=== PATIENT | female | born 1950 | race Caucasian/White ===

== ENCOUNTER 2018-08-23 21:39 | Emergency (ER) | payer OTHER ==
[~2018-08-23] VITALS: Ht 170.2 cm; Wt 122.5 kg
[~2018-08-23 21:39] MED LIST: ACCUPRIL; ALBU90OI61 INH; AMLO5; Acyclovir800 MG PO; HCTZ; HYDACE5 PO; LEVO750 PO; LEVSOD25; LORA1 PO; LOSARTAN POTASS50 MG PO; MELO7.5 PO; METO100ER; METO100ER PO; Metoprolol Tar100 MG PO; OLME20 PO; Percocet 5-3251 EACH PO; QUIN10 PO; RXHYDACE PO
[2018-08-23 22:26] LABS: BASOPHILS ABSOLUTE AUTO 0.06 K/mm3 (0.00-0.23); BASOPHILS PERCENT AUTO 1 % (0-2); EOSINOPHILS ABSOLUTE AUTO 0.38 K/mm3 (0.00-0.68); EOSINOPHILS PERCENT AUTO 3 % (0-6); Hematocrit 39.7 % (33.0-51.0); Hemoglobin 12.3 g/dL (11.5-16.0); IMMATURE GRAN ABSOLUTE AUTO 0.08 K/mm3 (0.00-0.10); IMMATURE GRAN PERCENT AUTO 1 % (0-1); LYMPHOCYTES ABSOLUTE AUTO 2.79 K/mm3 (0.84-5.20); LYMPHOCYTES PERCENT AUTO 22 % (21-46); MONOCYTES ABSOLUTE AUTO 1.35 K/mm3 (0.16-1.47); MONOCYTES PERCENT AUTO 10 % (4-13); Mean Corpuscular HGB 28.3 pg (26.0-34.0); Mean Corpuscular Volume 92 fL (80-100); Mean Platelet Volume 10.5 fL (9.1-12.4); NEUTROPHILS ABSOLUTE AUTO 8.26 K/mm3 (1.96-9.15); NEUTROPHILS PERCENT AUTO 64 % (41-73); Platelet Count 347 K/mm3 (150-400); RDW Coefficient Variation 14.5 % (11.7-14.2); Red Blood Cell Count 4.34 M/mm3 (3.80-5.20); White Blood Cell Count 12.92 K/mm3 (4.00-11.30)
[2018-08-23] MEDS ORDERED: METO100 PO (23:27)
[2018-08-23] MEDS ORDERED: FURO40 PO (23:28)
[2018-08-23] MEDS ORDERED: POTCHL10ER PO (23:28)
[2018-08-23] MEDS ORDERED: AMLO10 PO (23:29)
[2018-08-23] MEDS ORDERED: LEVSOD50 PO (23:29)
[2018-08-23 23:47] LABS: Troponin I <0.015 ng/mL (0.000-0.040)
[2018-08-23 23:52] LABS: Alanine Aminotransfer (ALT/SGP 21 U/L (12-78); Albumin, Blood 3.5 g/dL (3.4-5.0); Albumin/Globulin Ratio 0.9 (0.8-1.8); Alk Phos 102 U/L (50-136); Anion Gap 3 mmol/L (6-16); Aspartate Aminotrans (AST/SGOT 15 U/L (12-37); Bilirubin, Total 0.3 mg/dL (0.1-1.0); Blood Urea Nitrogen 18 mg/dL (8-24); Bun/Creatinine Ratio 20.8 (12.0-20.0); CO2, Blood 31 mmol/L (21-32); Calcium, Blood 8.9 mg/dL (8.5-10.1); Chloride, Blood 107 mmol/L (98-108); Creatinine, Blood 0.87 mg/dL (0.40-1.00); Globulin, Blood 3.7 g/dL (2.2-4.0); Glomerular Filtration Rate >60 (60-); Glucose, Blood 81 mg/dL (70-99); Potassium, Blood 3.8 mmol/L (3.5-5.5); Sodium, Blood 141 mmol/L (136-145); Total Protein, Blood 7.2 g/dL (6.4-8.2)
== END 2018-08-24 00:40 | disposition home or self-care (01) ==
LOC: ER 21:39
PROVIDERS: Physician Assistant
DX: R60.0 Localized edema (principal); E03.9 Hypothyroidism, unspecified; I10 Essential (primary) hypertension; M79.7 Fibromyalgia; Z88.1 Allergy status to other antibiotic agents; Z79.899 Other long term (current) drug therapy
CPT/HCPCS: 36415; 71046; 80053; 83880; 84484; 85025; 93005; 93010; 96374; 99284-25

== ENCOUNTER 2019-04-13 12:23 | Emergency (ER) | payer OTHER ==
[~2019-04-13] VITALS: Ht 167.6 cm; Wt 95.2 kg
[~2019-04-13 12:23] MED LIST changes: +AMLO10 PO; +FURO40 PO; +LEVSOD50 PO; +METO100 PO; +POTCHL10ER PO
[2019-04-13 13:28] LABS: BASOPHILS ABSOLUTE AUTO 0.06 K/mm3 (0.00-0.23); BASOPHILS PERCENT AUTO 1 % (0-2); EOSINOPHILS PERCENT AUTO 4 % (0-6); Hematocrit 40.3 % (33.0-51.0); Hemoglobin 12.2 g/dL (11.5-16.0); IMMATURE GRAN ABSOLUTE AUTO 0.05 K/mm3 (0.00-0.10); IMMATURE GRAN PERCENT AUTO 1 % (0-1); LYMPHOCYTES ABSOLUTE AUTO 1.92 K/mm3 (0.84-5.20); LYMPHOCYTES PERCENT AUTO 23 % (21-46); MONOCYTES ABSOLUTE AUTO 0.51 K/mm3 (0.16-1.47); MONOCYTES PERCENT AUTO 6 % (4-13); Mean Corpuscular HGB 27.5 pg (26.0-34.0); Mean Corpuscular HGB Conc 30.3 g/dL (31.5-36.5); Mean Corpuscular Volume 91 fL (80-100); Mean Platelet Volume 10.7 fL (9.1-12.4); NEUTROPHILS ABSOLUTE AUTO 5.68 K/mm3 (1.96-9.15); NEUTROPHILS PERCENT AUTO 67 % (41-73); Platelet Count 305 K/mm3 (150-400); RDW Coefficient Variation 14.6 % (11.7-14.2); RDW Standard Deviation 48.7 fL (35.1-46.3); Red Blood Cell Count 4.43 M/mm3 (3.80-5.20); White Blood Cell Count 8.52 K/mm3 (4.00-11.30)
[2019-04-13 13:51] LABS: Alanine Aminotransfer (ALT/SGP 19 U/L (12-78); Albumin, Blood 3.4 g/dL (3.4-5.0); Alk Phos 89 U/L (50-136); Anion Gap 6 mmol/L (6-16); Aspartate Aminotrans (AST/SGOT 18 U/L (12-37); Bilirubin, Total 0.5 mg/dL (0.1-1.0); Blood Urea Nitrogen 11 mg/dL (8-24); Bun/Creatinine Ratio 15.9 (12.0-20.0); CO2, Blood 27 mmol/L (21-32); Calcium, Blood 8.7 mg/dL (8.5-10.1); Chloride, Blood 108 mmol/L (98-108); Creatinine, Blood 0.69 mg/dL (0.40-1.00); Globulin, Blood 3.5 g/dL (2.2-4.0); Glomerular Filtration Rate >60 (60-); Glucose, Blood 142 mg/dL (70-99); Potassium, Blood 3.6 mmol/L (3.5-5.5); Sodium, Blood 141 mmol/L (136-145); Total Protein, Blood 6.9 g/dL (6.4-8.2); Troponin I <0.015 ng/mL (0.000-0.040)
== END 2019-04-13 16:28 | disposition home or self-care (01) ==
LOC: ER 12:23
PROVIDERS: Physician Assistant
DX: R60.0 Localized edema (principal); M79.661 Pain in right lower leg; M79.662 Pain in left lower leg; I10 Essential (primary) hypertension; E03.9 Hypothyroidism, unspecified; Z88.1 Allergy status to other antibiotic agents; Z79.899 Other long term (current) drug therapy
CPT/HCPCS: 36415; 71046; 80053; 83880; 84484; 85025; 93005; 93010; 93971; 96374; 99284-25; J1940

== ENCOUNTER 2024-07-25 09:28 | Inpatient (IN) | payer OTHER ==
[~2024-07-25] VITALS: Ht 170.2 cm; Wt 114.1 kg
[2024-07-25] MEDS ORDERED: DiphenhydrAMINE HCl 50 MG/ML 1ML Vial IV ONE ×2 (10:10→14:55)
[2024-07-25] MEDS ORDERED: Ipratropium/Albuterol SulF 2.5-0.5MG/3 ML Amp INH ONE ×2 (10:10→15:05)
[2024-07-25] MEDS ORDERED: NS 1,000 ML IV SCH ×3 (10:10→17:55)
[2024-07-25] MEDS ORDERED: Prochlorperazine Edisylate 10 mg Vial IV ONE ×2 (10:10→14:55)
[2024-07-25 11:03] LABS: BASOPHILS ABSOLUTE AUTO 0.07 K/mm3 (0.00-0.23); BASOPHILS PERCENT AUTO 1 % (0-2); EOSINOPHILS ABSOLUTE AUTO 0.05 K/mm3 (0.00-0.68); EOSINOPHILS PERCENT AUTO 0 % (0-6); Hematocrit 44.4 % (33.0-51.0); Hemoglobin 14.5 g/dL (11.5-16.0); IMMATURE GRAN ABSOLUTE AUTO 0.06 K/mm3 (0.00-0.10); IMMATURE GRAN PERCENT AUTO 0 % (0-1); LYMPHOCYTES ABSOLUTE AUTO 1.38 K/mm3 (0.84-5.20); LYMPHOCYTES PERCENT AUTO 10 % (21-46); MONOCYTES PERCENT AUTO 12 % (4-13); Mean Corpuscular HGB 27.9 pg (26.0-34.0); Mean Corpuscular HGB Conc 32.7 g/dL (31.5-36.5); Mean Corpuscular Volume 86 fL (80-100); Mean Platelet Volume 10.5 fL (9.1-12.4); NEUTROPHILS ABSOLUTE AUTO 11.27 K/mm3 (1.96-9.15); NEUTROPHILS PERCENT AUTO 78 % (41-73); Platelet Count 342 K/mm3 (150-400); RDW Standard Deviation 47.2 fL (35.1-46.3); Red Blood Cell Count 5.19 M/mm3 (3.80-5.20); White Blood Cell Count 14.53 K/mm3 (4.00-11.30)
[2024-07-25 11:27] LABS: Albumin, Blood 3.5 g/dL (3.4-5.0); Albumin/Globulin Ratio 0.8 (0.8-1.8); Bilirubin, Total 1.5 mg/dL (0.1-1.0); Bun/Creatinine Ratio 15.4 (12.0-20.0); Calcium, Blood 8.8 mg/dL (8.5-10.1); Creatinine, Blood 0.65 mg/dL (0.40-1.00); Globulin, Blood 4.3 g/dL (2.2-4.0); Potassium, Blood 4.1 mmol/L (3.5-5.5); Total Protein, Blood 7.8 g/dL (6.4-8.2)
[2024-07-25] MEDS ORDERED: Albuterol 2.5 MG/3 ML VIAL INH ONE ×2 (15:25→15:35)
[2024-07-25] MEDS ORDERED: Ondansetron HCl 2 MG / ML 2ML Vial IV ONE (15:45)
[2024-07-25] MEDS ORDERED: CefTRIAXone Sodium 1,000 MG in NS 100 ML IV ONE (16:10)
[2024-07-25] MEDS ORDERED: OxyCODONE 5 mg/Acetamin 325 mg TABLET PO PRN (17:50)
[2024-07-25] MEDS ORDERED: Acetaminophen 500 MG Tab PO PRN (17:50)
[2024-07-25] MEDS ORDERED: Ondansetron HCl 2 MG / ML 2ML Vial IV PRN (17:55)
[2024-07-25] MEDS ORDERED: Ketorolac Tromethamine 15mg Vial IV ONE (18:00)
[2024-07-25] MEDS ORDERED: Doxycycline Hyclate 100 MG TAB PO SCH (18:00)
[2024-07-25] MEDS ORDERED: Ketorolac Tromethamine 15mg Vial IV PRN (18:15)
[2024-07-25 19:46] VITALS: BP 150/84
[2024-07-25 20:06] LABS: Influenza A, PCR NEGATIVE (NEGATIVE); Influenza B, PCR NEGATIVE (NEGATIVE); Resp Syncytial Virus, PCR NEGATIVE (NEGATIVE); SARS-Cov-2 (COVID-19) PCR, MMC NEGATIVE (NEGATIVE)
[2024-07-25] MEDS ORDERED: HYDACE10B PO ×2 (20:17→20:18)
[2024-07-25] MEDS ORDERED: Albuterol 2.5 MG/3 ML VIAL INH PRN (20:45)
[2024-07-25] MEDS ORDERED: Metoprolol Tartrate 50 MG Tab PO SCH (21:00)
[2024-07-25] MEDS ORDERED: Lactobacil 2-S.Thermo-Bifido 1 1 Cap PO SCH (21:00)
[2024-07-25] MEDS ORDERED: HYDROcodone 10-APAP 325 TAB PO PRN (21:30)
[2024-07-26 04:31] VITALS: BP 111/75
--- NOTE | 2024-07-26 05:08 | NUR ---
SHIFT SUMMARY PT ADMITTED DURING THE EVENING FOR PNEUMONIA. PT WITH OCCASSIONAL COUGH. PT ON ROOM AIR WITH SATS WNL. UP TO BATHROOM INDEPENDENTLY/SBA. MEDICATED FOR HEADACHE PER EMAR. IVF INFUSING PER ORDER. BED IN LOWEST POSITION, CALL LIGHT WITHIN REACH, SIDERAILS UP X2.
[2024-07-26 05:55] LABS: BASOPHILS ABSOLUTE AUTO 0.06 K/mm3 (0.00-0.23); BASOPHILS PERCENT AUTO 1 % (0-2); EOSINOPHILS PERCENT AUTO 3 % (0-6); Hematocrit 38.6 % (33.0-51.0); Hemoglobin 12.4 g/dL (11.5-16.0); IMMATURE GRAN ABSOLUTE AUTO 0.06 K/mm3 (0.00-0.10); IMMATURE GRAN PERCENT AUTO 1 % (0-1); LYMPHOCYTES PERCENT AUTO 15 % (21-46); MONOCYTES ABSOLUTE AUTO 1.44 K/mm3 (0.16-1.47); MONOCYTES PERCENT AUTO 14 % (4-13); Mean Corpuscular HGB 27.8 pg (26.0-34.0); Mean Corpuscular HGB Conc 32.1 g/dL (31.5-36.5); Mean Corpuscular Volume 87 fL (80-100); Mean Platelet Volume 10.5 fL (9.1-12.4); NEUTROPHILS ABSOLUTE AUTO 7.02 K/mm3 (1.96-9.15); NEUTROPHILS PERCENT AUTO 68 % (41-73); Platelet Count 289 K/mm3 (150-400); RDW Coefficient Variation 15.5 % (11.7-14.2); RDW Standard Deviation 49.7 fL (35.1-46.3); Red Blood Cell Count 4.46 M/mm3 (3.80-5.20); White Blood Cell Count 10.38 K/mm3 (4.00-11.30)
[2024-07-26] MEDS ORDERED: Levothyroxine Sodium 0.05 MG Tab PO SCH (06:00)
[2024-07-26 06:13] LABS: Albumin, Blood 2.9 g/dL (3.4-5.0); Albumin/Globulin Ratio 0.8 (0.8-1.8); Bun/Creatinine Ratio 21.9 (12.0-20.0); Calcium, Blood 8.4 mg/dL (8.5-10.1); Creatinine, Blood 0.82 mg/dL (0.40-1.00); Globulin, Blood 3.8 g/dL (2.2-4.0); Potassium, Blood 3.8 mmol/L (3.5-5.5); Total Protein, Blood 6.7 g/dL (6.4-8.2)
[2024-07-26 07:29] VITALS: BP 113/63
[2024-07-26] MEDS ORDERED: AmLODIPine Besylate 5 MG Tab PO SCH (09:00)
[2024-07-26] MEDS ORDERED: Enoxaparin 40 MG/0.4 ML SYR SC SCH (09:00)
--- NOTE | 2024-07-26 15:19 | NUR ---
THIS RN NOTIFIED OF PT'S D-DIMER LAB RESULT. PROVIDER TO PUT NEW ORDER IN EMAR.
[2024-07-26 16:31] VITALS: BP 157/88
[2024-07-26] MEDS ORDERED: CefTRIAXone Sodium 1,000 MG in NS 100 ML IV SCH (17:00)
--- NOTE | 2024-07-26 18:03 | NUR ---
SHIFT SUMMARY PT A&OX4, VSS, ON RA, TOLERATING PO, VOIDING, AND H/A PAIN MEDICATED PER EMAR. NS D/C PER ORDER. D-DIMER LAB COMPLETE AND PROVIDER NOTIFIED, SEE PREVIOUS NOTE. PROVIDER ALSO NOTIFIED OF REFUSAL OF LOVENOX. PT EDUCATED AND AGREEABLE TO TOMORROW DOSE. PT PLAN TO HAVE PE STUDY. NO OTHER ACUTE CHANGES. CALL LIGHT WITHIN REACH AND PT ABLE TO MAKE NEEDS KNOWN.
[2024-07-26 19:28] VITALS: BP 149/82
[2024-07-26] MEDS ORDERED: Metoprolol Tartrate 50 MG Tab PO SCH (21:00)
[2024-07-26] MEDS ORDERED: MetroNIDAZOLE 500MG/NS 100 ml 100 ML IV SCH (23:00)
[2024-07-26] MEDS ORDERED: NS 250 ML IV PRN (23:10)
[2024-07-26 23:56] VITALS: BP 131/72
[2024-07-26 23:57] VITALS: BP 131/72
[2024-07-27 03:59] VITALS: BP 138/78
--- NOTE | 2024-07-27 04:54 | NUR ---
SHIFT SUMMARY PT HAD CT FOR PE STUDY DURING THE EVENING- CT SHOWED FREE AIR IN ABDOMEN. CT ABD/PELVIS DONE WITH SAME RESULTS. PT MADE NPO AND IV FLAGYL GIVEN PER NEW ORDER. PT STATED SHARP RECTAL AND LOWER ABD PAIN AFTER 1ST CT, BUT SYMPTOMS RESOLVED. PT WITH SOME NAUSEA, BUT STATES SHE FEELS THAT WAY SOMETIMES AT HOME AFTER [place]. PT C/O CONTINUED HEADACHE. PT MEDICATED FOR PAIN AND NAUSEA PER EMAR. ICE PACK PROVIDED WELL FOR HEADACHE. PT SLEPT INTERMITTENTLY DURING THE NIGHT. BED IN LOWEST POSITION, CALL LIGHT WITHIN REACH, SIDERAILS UP X2.
[2024-07-27 07:11] VITALS: BP 132/77
[2024-07-27] MEDS ORDERED: Morphine Sulfate 4 MG/1 ML Injection IV PRN (10:10)
[2024-07-27 15:59] VITALS: BP 154/68
--- NOTE | 2024-07-27 17:22 | NUR ---
SHIFT SUMMARY SURGICAL CONSULT COMPLETED, NO INTERVENTION AT THIS TIME. PT ON CLEAR LIQUID DIET AND PLAN TO CONT IV ABX. PT CONT TO C/O HEADACHE THAT WAS MEDICATED PER EMAR. PT WORKED W/ PHYSICAL THERAPY, SEE THERAPY NOTE. NO OTHER ACUTE CHANGES. CALL LIGHT WITHIN REACH AND PT ABLE TO MAKE NEEDS KNOWN.
[2024-07-27 19:53] VITALS: BP 151/93
[2024-07-28 05:25] VITALS: BP 146/72
[2024-07-28 07:34] LABS: BASOPHILS ABSOLUTE AUTO 0.04 K/mm3 (0.00-0.23); BASOPHILS PERCENT AUTO 0 % (0-2); EOSINOPHILS ABSOLUTE AUTO 0.27 K/mm3 (0.00-0.68); EOSINOPHILS PERCENT AUTO 2 % (0-6); Hematocrit 37.8 % (33.0-51.0); IMMATURE GRAN ABSOLUTE AUTO 0.07 K/mm3 (0.00-0.10); IMMATURE GRAN PERCENT AUTO 1 % (0-1); LYMPHOCYTES ABSOLUTE AUTO 1.28 K/mm3 (0.84-5.20); LYMPHOCYTES PERCENT AUTO 11 % (21-46); MONOCYTES ABSOLUTE AUTO 0.93 K/mm3 (0.16-1.47); MONOCYTES PERCENT AUTO 8 % (4-13); Mean Corpuscular HGB Conc 31.7 g/dL (31.5-36.5); Mean Corpuscular Volume 88 fL (80-100); Mean Platelet Volume 10.6 fL (9.1-12.4); NEUTROPHILS ABSOLUTE AUTO 9.26 K/mm3 (1.96-9.15); NEUTROPHILS PERCENT AUTO 78 % (41-73); Platelet Count 317 K/mm3 (150-400); RDW Coefficient Variation 15.4 % (11.7-14.2); RDW Standard Deviation 50.1 fL (35.1-46.3); Red Blood Cell Count 4.29 M/mm3 (3.80-5.20); White Blood Cell Count 11.85 K/mm3 (4.00-11.30)
[2024-07-28 07:54] LABS: Bun/Creatinine Ratio 13.2 (12.0-20.0); Calcium, Blood 8.5 mg/dL (8.5-10.1); Creatinine, Blood 0.61 mg/dL (0.40-1.00); Potassium, Blood 4.4 mmol/L (3.5-5.5)
[2024-07-28 08:23] VITALS: BP 182/94
[2024-07-28 15:22] VITALS: BP 165/91
[2024-07-28] MEDS ORDERED: HydrALAZINE HCl 20 MG / ML 1ML Vial IV PRN (19:15)
[2024-07-28] MEDS ORDERED: Losartan Potassium 50 MG Tab PO SCH (20:00)
[2024-07-28 20:02] VITALS: BP 188/96
[2024-07-29 05:05] VITALS: BP 126/76
[2024-07-29 07:28] VITALS: BP 138/74
[2024-07-29 10:22] LABS: BASOPHILS ABSOLUTE AUTO 0.06 K/mm3 (0.00-0.23); BASOPHILS PERCENT AUTO 1 % (0-2); EOSINOPHILS ABSOLUTE AUTO 0.43 K/mm3 (0.00-0.68); EOSINOPHILS PERCENT AUTO 4 % (0-6); Hematocrit 36.4 % (33.0-51.0); Hemoglobin 11.4 g/dL (11.5-16.0); IMMATURE GRAN PERCENT AUTO 1 % (0-1); LYMPHOCYTES ABSOLUTE AUTO 1.47 K/mm3 (0.84-5.20); LYMPHOCYTES PERCENT AUTO 13 % (21-46); MONOCYTES PERCENT AUTO 10 % (4-13); Mean Corpuscular HGB Conc 31.3 g/dL (31.5-36.5); Mean Corpuscular Volume 89 fL (80-100); Mean Platelet Volume 10.6 fL (9.1-12.4); NEUTROPHILS ABSOLUTE AUTO 8.12 K/mm3 (1.96-9.15); NEUTROPHILS PERCENT AUTO 72 % (41-73); Platelet Count 343 K/mm3 (150-400); RDW Coefficient Variation 15.1 % (11.7-14.2); RDW Standard Deviation 49.7 fL (35.1-46.3); Red Blood Cell Count 4.07 M/mm3 (3.80-5.20); White Blood Cell Count 11.28 K/mm3 (4.00-11.30)
[2024-07-29 10:42] LABS: Bun/Creatinine Ratio 10.8 (12.0-20.0); Calcium, Blood 8.4 mg/dL (8.5-10.1); Creatinine, Blood 0.55 mg/dL (0.40-1.00); Potassium, Blood 4.3 mmol/L (3.5-5.5)
[2024-07-29 15:19] VITALS: BP 161/82
--- NOTE | 2024-07-29 16:37 | NUR ---
PT HAS HAD HEADACHE PERIODICALLY THROUGH THE DAY AND SUBSIDED LATER AFTERNNON FROM A CUP OF COFFEE. PT HAS BOUTS OF NAUSEA BUT SUBSIDES AFTER PRN ZOFRAN
[2024-07-29 19:46] VITALS: BP 178/91
--- NOTE | 2024-07-30 04:52 | NUR ---
AAOX4, AMBULATES TO BR WITH CANE. C/O KAUR AND NAUSEA. COFFE HELPED KAUR, ZOFRAN DECREASED NAUSEA. SLEPT WELL WITHOUT ANY ACUTE NEEDS
[2024-07-30 05:16] VITALS: BP 161/82
[2024-07-30 07:34] VITALS: BP 162/88
[2024-07-30 15:27] VITALS: BP 159/88
[2024-07-30] MEDS ORDERED: Acetaminophen/Aspirin/Caffeine 250/250/65 MG PO STA (17:18)
[2024-07-30] MEDS ORDERED: Acetaminophen/Aspirin/Caffeine 250/250/65 MG PO PRN (18:00)
[2024-07-30 20:25] VITALS: BP 153/74
[2024-07-30] MEDS ORDERED: Banana Flakes/Tos 1 EA Powder Pack PO SCH (21:00)
[2024-07-31 03:45] VITALS: BP 147/74
[2024-07-31 06:02] LABS: Hematocrit 39.7 % (33.0-51.0); Hemoglobin 12.4 g/dL (11.5-16.0); Mean Corpuscular HGB 27.6 pg (26.0-34.0); Mean Corpuscular HGB Conc 31.2 g/dL (31.5-36.5); Mean Corpuscular Volume 88 fL (80-100); Mean Platelet Volume 10.4 fL (9.1-12.4); Platelet Count 410 K/mm3 (150-400); RDW Coefficient Variation 14.8 % (11.7-14.2); Red Blood Cell Count 4.49 M/mm3 (3.80-5.20); White Blood Cell Count 9.45 K/mm3 (4.00-11.30)
[2024-07-31 06:30] LABS: Bun/Creatinine Ratio 6.7 (12.0-20.0); Calcium, Blood 8.8 mg/dL (8.5-10.1); Creatinine, Blood 0.6 mg/dL (0.40-1.00)
[2024-07-31 07:38] VITALS: BP 179/98
[2024-07-31 15:51] VITALS: BP 167/77
--- NOTE | 2024-07-31 17:21 | NUR ---
PT HAD NO C/O PAIN, CHEST PAIN OR SOB.
[2024-07-31 19:55] VITALS: BP 175/87
[2024-07-31] MEDS ORDERED: Losartan Potassium 50 MG Tab PO SCH (21:00)
--- NOTE | 2024-08-01 04:38 | NUR ---
SHIFT SUMMARY: PT AOX4 IND/SBA WITH A CANE. PT GOT UP AND MOVING WELL, COMPLAINS OF A LOT OF COUGHING, AND WHEEZING, COUGH IS PRODUCTIVE. SLEEPING WELL THROUGH THE NIGHT. TOLERATING MEDICATIONS WELL. STATES TO BE FEELING MUCH BETTER THAN ON ADMISSION. NO ACUTE EVENTS OVERNIGHT. PT IN BED SLEEPING, BED IN LOWEST POSITION, CALL LIGHT IN REACH. CONTINUING CARE.
[2024-08-01 05:16] VITALS: BP 160/92
[2024-08-01 05:25] LABS: Hematocrit 40.6 % (33.0-51.0); Hemoglobin 12.8 g/dL (11.5-16.0); Mean Corpuscular HGB 27.9 pg (26.0-34.0); Mean Corpuscular HGB Conc 31.5 g/dL (31.5-36.5); Mean Corpuscular Volume 89 fL (80-100); Mean Platelet Volume 10.1 fL (9.1-12.4); Platelet Count 421 K/mm3 (150-400); RDW Coefficient Variation 14.8 % (11.7-14.2); RDW Standard Deviation 47.6 fL (35.1-46.3); Red Blood Cell Count 4.59 M/mm3 (3.80-5.20); White Blood Cell Count 9.62 K/mm3 (4.00-11.30)
[2024-08-01 05:55] LABS: Bun/Creatinine Ratio 8.1 (12.0-20.0); Calcium, Blood 8.9 mg/dL (8.5-10.1); Creatinine, Blood 0.62 mg/dL (0.40-1.00); Potassium, Blood 4.5 mmol/L (3.5-5.5)
[2024-08-01 07:25] VITALS: BP 166/87
[2024-08-01] MEDS ORDERED: Loperamide HCl 2 MG Cap PO ONE (15:55)
[2024-08-01 16:00] VITALS: BP 144/89
[2024-08-01] MEDS ORDERED: Banana Flakes/Tos 1 EA Powder Pack PO SCH (17:00)
--- NOTE | 2024-08-01 18:34 | NUR ---
NO ACUTE CHANGES, MEDICATED WITH IMMODIUM ONCE, CLEARLY MAKES NEEDS KNWON, SHOWERED TODAY, MEDICATED FOR HEAD ACHE PAIN, CALL LIGHT WITH IN REACH, WILL RELAY TO PM RN
[2024-08-01 19:58] VITALS: BP 153/82
[2024-08-02 03:13] VITALS: BP 174/85
--- NOTE | 2024-08-02 04:39 | NUR ---
SHIFT SUMMARY: PT AOX4 PLEASANT, COOPERATIVE IN CARE, CALLS APPROPRIATELY, IND IN ROOM WITH CANE. TOLERATING MEDICATIONS WELL. PT SLEPT WELL THROUGH MOST OF THE NIGHT. COMPLAINED ABOUT SOME LEG PAIN AND THAT THEY ARE TENDER TO THE TOUCH, CONCERNED WITH SOME REDNESS. REDNESS LOOKS REGIONAL AROUND SOME OF THE SWELLING WARM TO THE TOUCH BUT NOT TOO LARGE. MEDICATED WITH TYLENOL AND PT TOLERATED WELL. PT IN BED SLEEPING, BED IN LOWEST POSITION, CALL LIGHT IN REACH. CONTIUNING CARE.
[2024-08-02 06:20] LABS: Bun/Creatinine Ratio 12.3 (12.0-20.0); Calcium, Blood 8.9 mg/dL (8.5-10.1); Creatinine, Blood 0.49 mg/dL (0.40-1.00); Potassium, Blood 4.2 mmol/L (3.5-5.5)
[2024-08-02 07:41] VITALS: BP 163/85
[2024-08-02] MEDS ORDERED: Furosemide 10 MG/ML 4ML Vial IV ONE (11:30)
[2024-08-02] MEDS ORDERED: HYDROCODONE-AC1 EA19 PO (13:28)
[2024-08-02] MEDS ORDERED: AMLO10 PO (13:28)
[2024-08-02] MEDS ORDERED: ACET500 PO (13:28)
[2024-08-02] MEDS ORDERED: EXTRA PAIN REL1 EAC2 PO (13:29)
[2024-08-02] MEDS ORDERED: BANATROL PLUS1 EAC1 PO (13:29)
[2024-08-02] MEDS ORDERED: VISBIOME 112.51 EACH PO (13:30)
[2024-08-02] MEDS ORDERED: AMOCLA875 PO (13:30)
--- NOTE | 2024-08-02 15:30 | NUR ---
DISCHARGE NOTE: WENT OVER DISCHARGE WITH THE PATIENT; PATIENT GOT DRESSED AND COLLECTED BELONGIGNS. PATIENT'S FAMILY ARRIVED TO TAKE PATIENT HOME. PATIENT WHEELED DOWN IN WHEELCHAIR BY FAMILY. NO SIGNS OR SYMPTOMS OF DISTRESS WTIH DISCHARGE.
== END 2024-08-02 15:16 | disposition home or self-care (01) | DRG 871 ==
LOC: ER 09:28 → ERHOLD 09:29 → MEDS 09:29 → EDBEDREQTM 17:51 → EDBEDREQ 17:51 → MEDS 19:10
PROVIDERS: Internal Medicine; Nurse Practitioner Acute Care; Student in an Organized Health Care Education/Training Program; ADMIT Student in an Organized Health Care Education/Training Program
DX: A41.9 Sepsis, unspecified organism (principal); J18.9 Pneumonia, unspecified organism; K57.20 Diverticulitis of large intestine with perforation and abscess without bleeding; K52.1 Toxic gastroenteritis and colitis; I10 Essential (primary) hypertension; M79.7 Fibromyalgia; E03.9 Hypothyroidism, unspecified; G89.29 Other chronic pain; K66.8 Other specified disorders of peritoneum; G43.909 Migraine, unspecified, not intractable, without status migrainosus; T36.95XA Adverse effect of unspecified systemic antibiotic, initial encounter; Z86.73 Personal history of transient ischemic attack (TIA), and cerebral infarction without residual deficits; Z88.1 Allergy status to other antibiotic agents; Z88.8 Allergy status to other drugs, medicaments and biological substances; Z79.899 Other long term (current) drug therapy; Z79.51 Long term (current) use of inhaled steroids; Z79.891 Long term (current) use of opiate analgesic; Z79.890 Hormone replacement therapy
CPT/HCPCS: 0241U; 36415; 70450; 70496; 70498; 71046; 71260; 74177; 80048; 80053; 83605; 85025; 85027; 85379; 87040; 93005; 93010; 94640; 94644; 94660; 94664; 94760; 96361; 96365-59; 96375; 96375-59; 96376; 97116; 97161; 99285-25; A6590; A9270; G0378; J0360; J0696; J0780; J1200; J1650; J1885; J1940; J2270; J2405; J7030; J7050; Q9967